=== PATIENT | male | born 1945 | race Caucasian/White ===

== ENCOUNTER → 2016-06-21 | Outpatient (CLI) | payer MEDICARE, OTHER | LOC: US 09:12 | DX: I73.9 Peripheral vascular disease, unspecified (principal) | CPT/HCPCS: 93925 ==

== ENCOUNTER → 2020-03-15 | Outpatient (CLI) | payer MEDICARE, OTHER | LOC: EXRD 09:56 | DX: M25.532 Pain in left wrist (principal); M11.232 Other chondrocalcinosis, left wrist; M11.832 Other specified crystal arthropathies, left wrist; R60.0 Localized edema; W19.XXXA Unspecified fall, initial encounter | CPT/HCPCS: 73110 ==

== ENCOUNTER 2020-09-05 12:54 | Emergency (ER) | payer MEDICARE, OTHER ==
[2020-09-05 14:16] LABS: HEMOGLOBIN 15.2 gm/dl (14.0-17.5); RED BLOOD COUNT 4.36 M/UL (4.20-5.50); WHITE BLOOD COUNT 7.4 K/UL (4.5-11.0)
[2020-09-05 14:34] LABS: BUN/CREATININE RATIO 14 (0-10)
== END 2020-09-05 16:10 | disposition home or self-care (01) ==
LOC: ER1 12:54
DX: K80.20 Calculus of gallbladder without cholecystitis without obstruction (principal); N28.1 Cyst of kidney, acquired; N20.0 Calculus of kidney; I71.4 Abdominal aortic aneurysm, without rupture; I48.91 Unspecified atrial fibrillation; F17.200 Nicotine dependence, unspecified, uncomplicated; E11.9 Type 2 diabetes mellitus without complications; Z79.01 Long term (current) use of anticoagulants; Z79.82 Long term (current) use of aspirin; Z79.899 Other long term (current) drug therapy
CPT/HCPCS: 80053; 81001; 83690; 85025; 99284

== ENCOUNTER → 2020-11-10 | Outpatient (CLI) | payer OTHER | LOC: KOH-I 08:19 | DX: G89.4 Chronic pain syndrome (principal); M25.562 Pain in left knee; M51.36 Other intervertebral disc degeneration, lumbar region; M51.26 Other intervertebral disc displacement, lumbar region; M25.462 Effusion, left knee; M17.12 Unilateral primary osteoarthritis, left knee; M11.262 Other chondrocalcinosis, left knee | CPT/HCPCS: 72148; 73562 ==